=== PATIENT | male | born 1990 | race Caucasian/White ===

== ENCOUNTER → 2018-11-30 | Outpatient (REF) | payer BC | LOC: M LAB REF 17:25 | PROVIDERS: ATTEND Family Medicine | DX: J31.2 Chronic pharyngitis (principal) ==

== ENCOUNTER → 2018-12-07 | Outpatient (CLI) | payer BC ==
[2018-12-07 13:12] LABS: BASO % 0.4 % (0.0-1.0); EOS % 0.1 % (0.0-3.0); HEMATOCRIT 46.6 % (42.0-52.0); HEMOGLOBIN 15.9 g/dl (13.5-17.5); LYMPH # 1.2 10^3/uL (1.5-6.5); LYMPH % 15.2 % (24.0-44.0); MEAN CORPUSCULAR HEMOGLOBIN 29.8 pg (27.0-33.0); MEAN CORPUSCULAR HGB CONC 34.1 g/dl (32.0-36.5); MEAN CORPUSCULAR VOLUME 87.4 fl (80.0-96.0); MONO # 0.3 10^3/uL (0.0-0.8); MONO % 3.9 % (0.0-5.0); NEUTROPHILS # 6.2 10^3/uL (1.8-7.7); NEUTROPHILS % 79.9 % (36.0-66.0); PLATELET COUNT, AUTOMATED 186 10^3/uL (150-450); RED BLOOD COUNT 5.33 10^6/uL (4.30-6.10); WHITE BLOOD COUNT 7.8 10^3/uL (4.0-10.0)
[2018-12-07 22:31] LABS: CHLAMYDIA DNA AMPLIFICATION NEGATIVE (NEGATIVE); GC DNA AMPLIFICATION NEGATIVE (NEGATIVE)
[2018-12-08 11:21] LABS: HIV 1&2 SCREEN CENTAUR NEGATIVE (NEGATIVE)
[2018-12-09 14:16] LABS: HEPATITIS C QUANTITATION HCV Not Detected IU/mL (.)
[2018-12-11 00:06] LABS: HSV IgM TYPES 1&2 <0.91 Ratio (0.00-0.90)
== END ==
LOC: M LAB 12:00
PROVIDERS: ATTEND Physician Assistant
DX: Z11.3 Encounter for screening for infections with a predominantly sexual mode of transmission (principal)

== ENCOUNTER → 2018-12-20 | Outpatient (REF) | payer BC ==
[2018-12-20 20:34] LABS: CHLAMYDIA DNA AMPLIFICATION NEGATIVE (NEGATIVE); GC DNA AMPLIFICATION NEGATIVE (NEGATIVE)
== END ==
LOC: M LAB REF 16:52
PROVIDERS: ATTEND Physician Assistant
DX: R35.0 Frequency of micturition (principal)

== ENCOUNTER → 2018-12-24 | Outpatient (REF) | payer BC ==
[2018-12-24 14:09] LABS: APPEARANCE, URINE CLEAR (CLEAR); BACTERIA, URINE AUTO NEGATIVE (NEGATIVE); BILIRUBIN, URINE AUTO NEGATIVE (NEGATIVE); BLOOD, URINE BLOOD NEGATIVE (NEGATIVE); COLOR, URINE STRAW (YELLOW); GLUCOSE, URINE (UA) AUTO NEGATIVE (NEGATIVE); KETONE, URINE AUTO NEGATIVE (NEGATIVE); LEUKOCYTE ESTERASE, URINE AUTO NEGATIVE (NEGATIVE); NITRITE, URINE AUTO NEGATIVE (NEGATIVE); PROTEIN, URINE AUTO NEGATIVE (NEGATIVE); RBC, URINE AUTO 0 /HPF (0-3); SPECIFIC GRAVITY URINE AUTO 1.004 (1.002-1.035); SQUAMOUS EPITHELIAL CELL UR AU 0 /HPF (0-6); UROBILINOGEN, URINE AUTO 0.2 mg/dL (0.0-2.0); WBC, URINE AUTO 0 /HPF (0-3)
== END ==
LOC: M SMT 13:13
PROVIDERS: ATTEND Nurse Practitioner Family
DX: R39.15 Urgency of urination (principal)

== ENCOUNTER → 2019-02-21 | Outpatient (REF) | payer BC ==
[2019-02-21 20:13] LABS: AMORPHOUS SEDIMENT SMALL (NEGATIVE); APPEARANCE, URINE HAZY (CLEAR); BACTERIA, URINE AUTO NEGATIVE (NEGATIVE); BILIRUBIN, URINE AUTO NEGATIVE (NEGATIVE); BLOOD, URINE BLOOD NEGATIVE (NEGATIVE); COLOR, URINE YELLOW (YELLOW); GLUCOSE, URINE (UA) AUTO NEGATIVE (NEGATIVE); KETONE, URINE AUTO NEGATIVE (NEGATIVE); LEUKOCYTE ESTERASE, URINE AUTO NEGATIVE (NEGATIVE); MUCUS, URINE SMALL (NEGATIVE); NITRITE, URINE AUTO NEGATIVE (NEGATIVE); PROTEIN, URINE AUTO NEGATIVE (NEGATIVE); RBC, URINE AUTO 1 /HPF (0-3); SQUAMOUS EPITHELIAL CELL UR AU 0 /HPF (0-6); UROBILINOGEN, URINE AUTO 0.2 mg/dL (0.0-2.0); WBC, URINE AUTO 2 /HPF (0-3)
== END ==
LOC: M SMT 18:31
PROVIDERS: ATTEND Urology
DX: N41.1 Chronic prostatitis (principal)

== ENCOUNTER → 2019-09-08 | Outpatient (CLI) | payer OTHER ==
[~2019-09-08] MED LIST: PROHANCE 279.3MG/ML 15ML VIAL (A9576) As Ordered ONE
--- NOTE | 2019-09-09 09:05 | REP ---
MRI PELVIS WITHOUT AND WITH IV GADOLINIUM: HISTORY: Chronic pelvic pain. No comparison imaging. The contrast enhancement dose: 15 mL of intravenous ProHance is administered. TECHNIQUE: Axial, coronal, and sagittal imaging planes are utilized. T1- and T2-weighted sequences include spin-echo, inversion recovery, diffusion, turbo spin-echo, and postcontrast imaging in all three planes. Images are acquired with and without fat saturation. MRI FINDINGS: T1- and T2-weighted precontrast images show normal cortical and medullary bone signal intensity in the proximal femurs and throughout the bony pelvic ring. There is no evidence of significant hip joint effusion or avascular necrosis. No pelvic mass or abnormal fluid collection is seen. Seminal vesicles prostate and urinary bladder are unremarkable. No abnormality is noted in the perineum. No sacral or presacral abnormality is seen. No vascular lesion is appreciated. Diffusion weighted scans are unremarkable. Postcontrast imaging shows no abnormal contrast enhancement. No soft tissue mass over the skeletal muscle edema is appreciated. IMPRESSION: Unremarkable pelvic MRI study without and with IV contrast. Electronically Signed by Osmar Melendez MD 09/09/2019 10:05 A
== END ==
LOC: M RAD 17:22
PROVIDERS: ATTEND Family Medicine
DX: N41.1 Chronic prostatitis (principal)
CPT/HCPCS: 72197; A9576

== ENCOUNTER → 2021-03-24 | Outpatient (CLI) | payer OTHER ==
--- NOTE | 2021-03-24 11:08 | REP ---
INDICATION: MALIGNANT NEOPLASM OF ENDOMETRIUM. Rule out disc herniation. COMPARISON: None. TECHNIQUE: Sagittal and axial T1 and T2-weighted scans are acquired in the usual fashion with and without fat saturation. Sequences include spin echo, turbo spin-echo, and STIR imaging sequences. FINDINGS: Lumbar vertebral body heights are preserved. Alignment is normal. Cortical and medullary bone signal intensity is normal. No bony destructive lesion is seen. The tip of the conus medullaris is normal in position and appearance at T12-L1. No extra vertebral abnormality is observed. Axial and sagittal images taken at L1-L2 and L2-L3 show no abnormality. At L3-4, the posterior disc margin and appears normal. There is no evidence of spinal stenosis, foraminal narrowing, or focal disc protrusion. At L4-L5, there is no disc protrusion or thecal sac or foraminal compression. There is no evidence of spondylolysis or spondylolisthesis. At L5-S1, posterior disc margin is intact as well. Facets are normally aligned. No spinal stenosis or foraminal narrowing is seen. IMPRESSION: Negative MRI study of the lumbar spine. No thecal sac or nerve root compression seen. <Electronically signed by Marlon Melendez > 03/24/21 [id number]
== END ==
LOC: M RAD 09:07
PROVIDERS: ATTEND Orthopaedic Surgery
DX: M54.5 Low back pain (principal)

== ENCOUNTER → 2021-04-24 | Outpatient (CLI) | payer OTHER ==
[2021-04-24 16:14] LABS: C REACTIVE PROTEIN QUANTITATIV < 0.30 MG/DL (0.00-0.30); RHEUMATOID FACTOR QUANT < 10.0 IU/ML (<15.0)
== END ==
LOC: M PLALAB 13:01
PROVIDERS: ATTEND Physician Assistant
DX: R20.2 Paresthesia of skin (principal); M54.5 Low back pain

== ENCOUNTER → 2021-04-27 | Outpatient (CLI) | payer OTHER ==
--- NOTE | 2021-04-28 00:24 | REPVR ---
PROCEDURE INFORMATION: Exam: MR Pelvis Without Contrast, Sacral plexus Exam date and time: 04/27/2021 9:03 AM Age: 30 years old Clinical indication: Pelvic pain and perianal pain; Additional info: Pelvic and perineal pain TECHNIQUE: Imaging protocol: Magnetic resonance images of the pelvis without intravenous contrast. Exam focused on the sacral plexus. COMPARISON: MRI PELVIS W/O FOLL WITH CON 09/08/2019 6:29 PM FINDINGS: Kidneys and ureters: Simple right renal cyst. Lymph nodes: Nonspecific subcentimeter right lower quadrant mesenteric lymph nodes. Nerves: Sacral plexus is unremarkable. Bones/joints: The exam terminates at the level of the pubic symphysis excluding perianal region significantly limiting evaluation. Soft tissues: Unremarkable. IMPRESSION: The exam terminates at the level of the pubic symphysis excluding perianal region significantly limiting evaluation. No acute findings. COMMENTS: Consistent with the [employer]'s Incidental Findings Committee white paper (J Am Wen Radiol 2018): Any incidental renal lesion less than 1 cm or classified as too small to characterize, or any incidental cystic renal lesion characterized as simple-appearing, is likely benign. No follow-up imaging is recommended for these lesions per consensus recommendations based on imaging criteria. Electronically signed by: Larry Horton On 04/28/2021 00:24:02 AM
== END ==
LOC: M RAD 08:01
PROVIDERS: ATTEND Physical Medicine & Rehabilitation
DX: R10.2 Pelvic and perineal pain (principal)

== ENCOUNTER → 2021-05-20 | Outpatient (CLI) | payer OTHER ==
[2021-05-20 15:37] LABS: BASO % 0.5 % (0.0-1.0); EOS # 0.1 10^3/uL (0.0-0.5); EOS % 0.9 % (0.0-3.0); HEMATOCRIT 47.3 % (42.0-52.0); HEMOGLOBIN 15.4 g/dl (13.5-17.5); LYMPH # 2.2 10^3/uL (1.5-5.0); LYMPH % 27.6 % (24.0-44.0); MEAN CORPUSCULAR HGB CONC 32.6 g/dl (32.0-36.5); MEAN CORPUSCULAR VOLUME 92.2 fl (80.0-96.0); MONO # 0.5 10^3/uL (0.0-0.8); MONO % 6.2 % (2.0-8.0); NEUTROPHILS # 5.1 10^3/uL (1.5-8.5); NEUTROPHILS % 64.4 % (36.0-66.0); PLATELET COUNT, AUTOMATED 167 10^3/uL (150-450); RED BLOOD COUNT 5.13 10^6/uL (4.30-6.10); WHITE BLOOD COUNT 7.9 10^3/uL (4.0-10.0)
[2021-05-20 15:38] LABS: HEMATOCRIT 46.9 % (42.0-52.0)
[2021-05-20 15:52] LABS: HEMOGLOBIN A1c 5.5 %
--- NOTE | 2021-05-20 16:15 | REP ---
INDICATION: NEUROPATHY. COMPARISON: None. TECHNIQUE: Three views of the sacrum and SI joints are provided. FINDINGS: Sacroiliac joints are intact bilaterally. There is no evidence of erosive change or ankylosis. No spurring is seen. Symphysis pubis and hip joint spaces are preserved. Nose sacral fracture or bony destructive lesion is seen. IMPRESSION: Negative views of the sacrum and SI joints. <Electronically signed by Marlon Melendez > 05/20/21 [id number]
[2021-05-20 16:27] LABS: H PYLORI QUALITATIVE IgG NEGATIVE (NEGATIVE)
[2021-05-20 21:57] LABS: ALBUMIN 4.2 GM/DL (3.2-5.2); ALT/SGPT 42 U/L (12-78); BILIRUBIN,TOTAL 0.3 MG/DL (0.2-1.0); BLOOD UREA NITROGEN 19 MG/DL (7-18); CALCIUM LEVEL 8.8 MG/DL (8.5-10.1); CARBON DIOXIDE LEVEL 31 MEQ/L (21-32); CHLORIDE LEVEL 105 MEQ/L (98-107); COMPLEMENT C3 127 MG/DL (90-180); COMPLEMENT C4 27 MG/DL (10-40); CPK CREATINE PHOSPHOKINASE 105 U/L (39-308); CREATININE FOR GFR 0.98 MG/DL (0.70-1.30); FREE T4 0.81 NG/DL (0.76-1.46); GLOMERULAR FILTRATION RATE > 60.0 (>60); GLUCOSE, FASTING 84 MG/DL (70-100); MAGNESIUM LEVEL 2.5 MG/DL (1.8-2.4); POTASSIUM SERUM 4.2 MEQ/L (3.5-5.1); SODIUM LEVEL 140 MEQ/L (136-145); TOTAL PROTEIN 7.2 GM/DL (6.4-8.2)
[2021-05-20 22:00] LABS: VITAMIN B12 LEVEL 345 PG/ML (247-911)
[2021-05-21 11:17] LABS: ALBUMIN 4.72 GM/DL (3.29-5.55); ALBUMIN % 65.6 % (55.8-66.1); ALPHA-1-GLOBULIN % 4.1 % (2.9-4.9); ALPHA-2-GLOBULINS % 9.7 % (7.1-11.8); BETA-1-GLOBULINS % 6.1 % (4.7-7.2); BETA-2-GLOBULINS % 4.8 % (3.2-6.5); GAMMA GLOBULIN % 9.7 % (11.1-18.8)
[2021-05-21 11:18] LABS: BETA-1-GLOBULINS 0.44 GM/DL (0.28-0.60); BETA-2-GLOBULINS 0.35 GM/DL (0.19-0.55)
== END ==
LOC: M PLAIMG 13:15
PROVIDERS: ATTEND Family Medicine
DX: G62.9 Polyneuropathy, unspecified (principal)

== ENCOUNTER → 2021-06-12 | Outpatient (CLI) | payer OTHER ==
[~2021-06-12] MED LIST changes: -PROHANCE 279.3MG/ML 15ML VIAL (A9576) As Ordered ONE; +PROHANCE 279.3MG/ML 15ML VIAL As Ordered ONE; +PROHANCE 279.3MG/ML 5ML VIAL As Ordered ONE
--- NOTE | 2021-06-12 11:27 | REPVR ---
PROCEDURE INFORMATION: Exam: MR Head Without and With Contrast Exam date and time: 06/12/2021 9:44 AM Age: 30 years old Clinical indication: Visual disturbance. TECHNIQUE: Imaging protocol: MR of the head without and with intravenous contrast. Contrast material: PROHANCE; Contrast volume: 16 ml; Contrast route: INTRAVENOUS (IV); COMPARISON: No relevant prior studies available. FINDINGS: Brain: Normal. No acute infarct. No hemorrhage. No significant white matter disease. No edema. Cerebral ventricles: Normal. No ventriculomegaly. Bones/joints: Unremarkable. Paranasal sinuses: Normal as visualized. No acute sinusitis. Mastoid air cells: Normal as visualized. No mastoid effusion. Orbital cavity: Unremarkable. Soft tissues: Unremarkable. Other findings: There is no abnormal enhancement. IMPRESSION: No acute findings. Electronically signed by: Justus Mijares On 06/12/2021 11:26:47 AM
== END ==
LOC: M RAD 07:35
PROVIDERS: ATTEND Family Medicine
DX: G62.9 Polyneuropathy, unspecified (principal); G24.5 Blepharospasm
CPT/HCPCS: 70553; A9576

== ENCOUNTER → 2021-06-25 | Outpatient (CLI) | payer OTHER ==
[2021-06-25 15:49] LABS: RHEUMATOID FACTOR QUANT < 10.0 IU/ML (<15.0)
[2021-06-25 16:01] LABS: VITAMIN B12 LEVEL 360 PG/ML (247-911)
[2021-06-26 10:05] LABS: DRVV SCREEN 37.7 SEC
== END ==
LOC: M PLALAB 13:07
PROVIDERS: ATTEND Family Medicine
DX: R76.8 Other specified abnormal immunological findings in serum (principal)

== ENCOUNTER → 2021-09-30 | Outpatient (CLI) | payer OTHER ==
[2021-09-30 13:34] LABS: PLATELET COUNT, AUTOMATED 176 10^3/uL (150-450)
[2021-09-30 13:44] LABS: INR 0.87; PROTHROMBIN TIME 12.2 SECONDS (12.7-14.5)
[2021-09-30 13:45] LABS: PARTIAL THROMBOPLASTIN TIME 26.9 SECONDS (25.9-37.0)
== END ==
LOC: M LAB 13:03
PROVIDERS: ATTEND Physical Medicine & Rehabilitation
DX: M54.17 Radiculopathy, lumbosacral region (principal)

== ENCOUNTER → 2023-04-25 | Outpatient (REF) | payer OTHER | LOC: M LAB REF 20:45 | PROVIDERS: ATTEND Student in an Organized Health Care Education/Training Program | DX: J02.9 Acute pharyngitis, unspecified (principal) ==

== ENCOUNTER → 2025-03-22 | Outpatient (CLI) | payer BC ==
[2025-03-22 10:21] LABS: BASO % 0.3 % (0.0-1.0); EOS # 0.1 10^3/uL (0.0-0.5); EOS % 1.2 % (0.0-3.0); HEMATOCRIT 45.6 % (42.0-52.0); HEMOGLOBIN 14.7 g/dl (13.5-17.5); LYMPH % 34.6 % (24.0-44.0); MEAN CORPUSCULAR HEMOGLOBIN 29.2 pg (27.0-33.0); MEAN CORPUSCULAR HGB CONC 32.2 g/dl (32.0-36.5); MEAN CORPUSCULAR VOLUME 90.7 fl (80.0-96.0); MONO # 0.3 10^3/uL (0.0-0.8); MONO % 5.2 % (2.0-8.0); NEUTROPHILS # 3.4 10^3/uL (1.5-8.5); NEUTROPHILS % 58.5 % (36.0-66.0); PLATELET COUNT, AUTOMATED 164 10^3/uL (150-450); RED BLOOD COUNT 5.03 10^6/uL (4.30-6.10); WHITE BLOOD COUNT 5.8 10^3/uL (4.0-10.0)
[2025-03-22 10:28] LABS: ALKALINE PHOSPHATASE 73 U/L (40-129); ALT/SGPT 23 U/L (7.0-40); AST/SGOT 17 U/L (<34); BILIRUBIN,TOTAL 0.4 MG/DL (0.3-1.2); BLOOD UREA NITROGEN 19 MG/DL (9-23); CALCIUM LEVEL 9.3 MG/DL (8.5-10.1); CARBON DIOXIDE LEVEL 30 MMOL/L (20-31); CHLORIDE LEVEL 104 MMOL/L (98-107); CREATININE FOR GFR 0.98 MG/DL (0.70-1.30); FERRITIN 92.6 NG/ML (10.5-307.3); GLOMERULAR FILTRATION RATE > 90.0 (>60); GLUCOSE, FASTING 141 MG/DL (60-100); POTASSIUM SERUM 4.5 MMOL/L (3.5-5.1); SODIUM LEVEL 142 MMOL/L (136-145); TOTAL PROTEIN 6.5 G/DL (5.7-8.2)
[2025-03-22 10:30] LABS: TOTAL 25(OH) VITAMIN D 25.5 NG/ML (20.0-100.0)
[2025-03-22 10:31] LABS: VITAMIN B12 LEVEL 343 PG/ML (211-911)
[2025-03-23 12:55] LABS: PTH INTACT 29.2 PG/ML (18.5-88.0)
[2025-03-24 13:48] LABS: TISSUE TRANSGLUTAMINASE IgA < 1.0 U/mL (<15.0)
== END ==
LOC: M PLALAB 07:19
PROVIDERS: ATTEND Family Medicine
DX: K21.9 Gastro-esophageal reflux disease without esophagitis (principal); E55.9 Vitamin D deficiency, unspecified; R76.8 Other specified abnormal immunological findings in serum

== ENCOUNTER → 2025-06-08 | Outpatient (REF) | payer OTHER ==
[~2025-06-08] MED LIST changes: +ESOM40CA35 PO; +NAPR-837 PO; -PROHANCE 279.3MG/ML 15ML VIAL As Ordered ONE; -PROHANCE 279.3MG/ML 5ML VIAL As Ordered ONE
== END ==
LOC: M SFHCPLAZ 16:46
PROVIDERS: ATTEND Family Medicine
DX: R10.13 Epigastric pain (principal)